=== PATIENT | male | born 1975 | race Caucasian/White ===

== ENCOUNTER 2017-04-20 20:02 | Emergency (ER) | payer OTHER ==
[2017-04-20] MEDS ORDERED: Cyclobenzaprine 10 MG PO ONE (20:34)
[2017-04-20] MEDS ORDERED: NORCO 5/325 MG PO ONE (20:34)
[2017-04-20] MEDS ORDERED: TORAdol 30 mg Injection IM ONE (20:35)
[2017-04-20] MEDS ORDERED: TORAdol 30 mg Injection ONE (20:38)
[2017-04-20] MEDS ORDERED: Cyclobenzaprine 10 MG ONE (20:38)
[2017-04-20] MEDS ORDERED: NORCO 5/325 MG ONE (20:39)
--- NOTE | 2017-04-20 20:41 | ERPHSYRPT ---
- History of Present Illness Time Seen by Provider: 04/20/17 20:25 Source: patient Exam Limitations: no limitations Patient Subjective Stated Complaint: lifted an axle on monday weighing approx 200 pounds pain in back radiating to right leg with numbness in right foot Triage Nursing Assessment: ambulatory to room able to undress. pain to right lower back , denies tender to palpation. staes pain started after lifting heavy object. states numbness in right foot.. + pedal pulses present. strong flex/extension. Physician History: 41 y/o male comes to the ER after lifting a heavy object weighing over 200 lbs yesterday and having right lower back pain. Pt describes the pain as sharp, constant, 8/10, worse with minimal movement, with radiation down right leg and not relieved by advil. No leg weakness or urinary/bowel incontinence. Timing/Duration: yesterday Method of Injury: lifting Quality: sharp Back Pain Location: lumbar spine Back Pain Radiation: upper legs Severity of Pain-Max: severe Severity of Pain-Current: severe Modifying Factors: Improves With: nothing Associated Symptoms: lower back pain Previous symptoms: no prior history Allergies/Adverse Reactions: No Known Drug Allergies Allergy (Unverified 04/20/17 20:27) Hx Pneumococcal Vaccination/Date Given: Yes - Review of Systems Constitutional: No Fever, No Chills Eyes: No Symptoms Ears, Nose, & Throat: No Symptoms Respiratory: No Cough, No Dyspnea Cardiac: No Chest Pain, No Edema, No Syncope Abdominal/Gastrointestinal: No Abdominal Pain, No Nausea, No Vomiting, No Diarrhea Genitourinary Symptoms: No Dysuria Musculoskeletal: Back Pain, No Neck Pain Skin: No Rash Neurological: No Dizziness, No Focal Weakness, No Sensory Changes Psychological: No Symptoms Endocrine: No Symptoms All Other Systems: Reviewed and Negative - Past Medical History Pertinent Past Medical History: No - Past Surgical History Past Surgical History: No - Social History Smoking Status: Current every day smoker Drug Use: none Patient Lives Alone: Yes - Nursing Vital Signs Nursing Vital Signs: Initial Vital Signs Respiratory Rate 18 04/20/17 20:12 Blood Pressure 146/92 04/20/17 20:12 O2 Sat by Pulse Oximetry 98 04/20/17 20:12 Pain Scale Pain Intensity [Right 10 Posterior Back] Pain Intensity 10 - Physical Exam General Appearance: moderate distress, alert Eye Exam: PERRL/EOMI, eyes nml inspection Neck Exam: normal inspection, non-tender, supple, full range of motion, No meningismus, No midline tenderness Respiratory Exam: normal breath sounds, lungs clear, No respiratory distress Cardiovascular Exam: regular rate/rhythm, normal heart sounds Gastrointestinal Exam: soft, No tenderness, No mass Back Exam: decreased range of motion, muscle spasm, No vertebral tenderness Extremity Exam: normal inspection, normal range of motion, No calf tenderness, No pedal edema Neurologic Exam: alert, oriented x 3, cooperative, 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, normal mood/affect, nml station & gait, sensation nml, No motor deficits Skin Exam: normal color, warm, dry, No rash SpO2: 98 Oxygen Delivery: Room Air - Course Nursing assessment & vital signs reviewed: Yes Ordered Tests: Medication Summary Discontinued Medications Generic Name Dose Route Start Last Admin Trade Name Freq PRN Reason Stop Dose Admin Hydrocodone Bitart/Acetaminophen 1 tab 04/20/17 20:34 04/20/17 20:41 Edwall 5/325 Mg PO 04/20/17 20:35 1 tab STAT ONE Administration Hydrocodone Bitart/Acetaminophen Confirm 04/20/17 20:39 Edwall 5/325 Mg Administered 04/20/17 20:40 Dose 1 tab .ROUTE .STK-MED ONE Cyclobenzaprine HCl 10 mg 04/20/17 20:34 04/20/17 20:41 Cyclobenzaprine 10 Mg PO 04/20/17 20:35 10 mg STAT ONE Administration Cyclobenzaprine HCl Confirm 04/20/17 20:38 Cyclobenzaprine 10 Mg Administered 04/20/17 20:39 Dose 10 mg .ROUTE .STK-MED ONE Ketorolac Tromethamine 60 mg 04/20/17 20:35 04/20/17 20:42 Toradol 30 Mg Injection IM 04/20/17 20:36 60 mg STAT ONE Administration Ketorolac Tromethamine Confirm 04/20/17 20:38 Toradol 30 Mg Injection Administered 04/20/17 20:39 Dose 60 mg .ROUTE .STK-MED ONE - Progress Progress: improved Progress Note: 04/20/17 20:38 Pt was given a dose of toradol 60mg IM X 1, norco 5/325 X 1 and flexeril 10mg X 1. Pt will be d/c home on similar meds for back spasm. - Departure Time of Disposition: 20:39 Departure Disposition: Home Clinical Impression: Back spasm Condition: Stable Critical Care Time: No Instructions: Low Back Pain Additional Instructions: Follow up with your primary care doctor if you should continue to have back pain in the next few days. Prescriptions: Cyclobenzaprine HCl [Flexeril] 5 mg PO TID PRN #14 tablet PRN Reason: Muscle Spasms Hydrocodone Bit/Acetaminophen [Edwall 5-325 Tablet] 1 each PO QID PRN #10 tablet PRN Reason: Severe Pain Ketorolac Tromethamine [Toradol] 10 mg PO QID PRN #20 tablet PRN Reason: Pain
[2017-04-20 21:04] VITALS: BP 130/69; PULSE 68; O2SAT 97
== END 2017-04-20 21:46 | disposition home or self-care (01) ==
LOC: ED 20:02
DX: M62.830 Muscle spasm of back (principal); X50.0XXA Overexertion from strenuous movement or load, initial encounter; M54.5 Low back pain
CPT/HCPCS: 96372; 99283; J1885; A9270-GY

== ENCOUNTER 2021-05-06 12:58 | Emergency (ER) | payer MEDICAID, OTHER ==
[2021-05-06 13:05] VITALS: BP 185/107; PULSE 76
[2021-05-06] MEDS ORDERED: TORAdol 30 mg Injection IM ONE (13:07)
[2021-05-06] MEDS ORDERED: TORAdol 30 mg Injection ONE (13:08)
--- NOTE | 2021-05-06 13:29 | XRAY ---
Indication: Pain following injury. Comparison: None 3 nonweightbearing views left foot demonstrates minimally displaced comminuted fracture distal shaft 5th metatarsal with mild soft tissue swelling. No other bony, articular, or soft tissue abnormality is.
--- NOTE | 2021-05-06 13:42 | ERPHSYRPT ---
- History of Present Illness Time Seen by Provider: 05/06/21 13:10 Source: patient Exam Limitations: no limitations Patient Subjective Stated Complaint: pt had another person fall on him and landed on hes left side, no co pain to left foot Triage Nursing Assessment: pt alert, resp easy, face mask in place. no swelling or bruising noted to left foot Physician History: Patient is a 45-year-old male presents to our ED with complaints of pain to his left foot. Patient states that 2 weeks ago he was kneeling on the floor. Patient states the second person accidentally fell on top of him causing the toes on his left foot to hyperextend the. Patient has been wearing a walking boot since. However patient is still experiencing pain. No interval trauma. Pain described as an ache that is localized to the dorsal surface of all of his toes however more so at the MTPs. No other injuries reported. Patient otherwise feels well. Pain is mild to moderate in intensity. Walking worsens symptoms. Pain improved with rest. Patient otherwise generally healthy. He voices no other complaints or concerns at this time. Method of Injury: other (Hyperextension injury of all toes.) Occurred: last week (2 weeks ago) Quality: intermittent, aching Severity of Pain-Max: moderate Severity of Pain-Current: mild Lower Extremities Pain: 1st toe: left, 2nd toe: left, 3rd toe: left, 4th toe: left, 5th toe: left Modifying Factors: Improves With: movement Associated Symptoms: none Allergies/Adverse Reactions: No Known Drug Allergies Allergy (Verified 05/06/21 13:26) Home Medications: No Reportable Medications [No Reported Medications] 08/07/17 [History] Hx Influenza Vaccination/Date Given: No Hx Pneumococcal Vaccination/Date Given: No Immunizations Up to Date: Yes Travel Risk - International Travel Have you traveled outside of the country in past 3 weeks: No - Coronavirus Screening Are you exhibiting any of the following symptoms?: No Close contact with a COVID-19 positive Pt in past 14-21 Days: No - Vaccine Status Have you recieved a Covid-19 vaccination: No - Review of Systems Constitutional: No Symptoms, No Fever, No Chills Eyes: No Symptoms Ears, Nose, & Throat: No Symptoms Respiratory: No Symptoms, No Cough, No Dyspnea Cardiac: No Symptoms, No Chest Pain, No Edema, No Syncope Abdominal/Gastrointestinal: No Symptoms, No Abdominal Pain, No Nausea, No Vomiting, No Diarrhea Genitourinary Symptoms: No Symptoms, No Dysuria Musculoskeletal: No Symptoms, No Back Pain, No Neck Pain Skin: No Symptoms, No Rash Neurological: No Symptoms, No Dizziness, No Focal Weakness, No Sensory Changes Psychological: No Symptoms Endocrine: No Symptoms Hematologic/Lymphatic: No Symptoms Immunological/Allergic: No Symptoms All Other Systems: Reviewed and Negative - Past Medical History Pertinent Past Medical History: No - Past Surgical History Past Surgical History: No - Social History Smoking Status: Current every day smoker Exposure to second hand smoke: Yes Drug Use: none Patient Lives Alone: Yes - Nursing Vital Signs Nursing Vital Signs: Initial Vital Signs Temperature 98.0 F 05/06/21 13:04 Pulse Rate 76 05/06/21 13:04 Respiratory Rate 18 05/06/21 13:04 Blood Pressure 185/107 05/06/21 13:04 O2 Sat by Pulse Oximetry 96 05/06/21 13:04 Pain Scale Pain Intensity 7 - Physical Exam General Appearance: no apparent distress, alert Eyes, Ears, Nose, Throat Exam: TMs normal, moist mucous membranes Neck Exam: normal inspection, non-tender, supple, full range of motion Cardiovascular/Respiratory Exam: chest non-tender, normal breath sounds, regular rate/rhythm, heart sounds normal, no respiratory distress Gastrointestinal/Abdominal Exam: non-tender, soft, guarding, No tenderness Back Exam: normal inspection, normal range of motion, No vertebral tenderness Hips Exam: bilateral: non-tender, normal inspection, normal range of motion, no evidence of injury Legs Exam: bilateral leg: non-tender, normal inspection, normal range of motion, no evidence of injury Knees Exam: bilateral knee: non-tender, normal inspection, normal range of motion, no evidence of injury Ankle Exam: bilateral ankle: non-tender, normal inspection, normal range of motion, no evidence of injury Foot Exam: left foot: pain (Tenderness to palpation at the dorsum of MTPs. There is particular tenderness over the left fifth metatarsal. Overlying soft tissue intact. No open or draining lesions.) Neuro/Tendon Exam: normal sensation, normal motor functions, normal tendon functions Mental Status Exam: alert, oriented x 3, cooperative Skin Exam: normal color, warm, dry SpO2 Interpretation: normal SpO2: 96 O2 Delivery: Room Air - Course Nursing assessment & vital signs reviewed: Yes - Radiology Exams Foot X-ray Interpretation: Teleradiologist Report (Minimally displaced comminuted fracture distal shaft fifth metatarsal with mild soft tissue swelling. No other bony articular or soft tissue abnormalities) Ordered Tests: Active Orders 24 hr Category Date Time Status FOOT (MINIMUM 3 VIEWS) Stat Exams 05/06/21 13:06 Completed Medication Summary Discontinued Medications Generic Name Dose Route Start Last Admin Trade Name Harry PRN Reason Stop Dose Admin Ketorolac Tromethamine 30 mg 05/06/21 13:07 05/06/21 13:11 Ketorolac Tromethamine 30 Mg/Ml Inj IM 05/06/21 13:08 30 mg STAT ONE Administration Ketorolac Tromethamine Confirm 05/06/21 13:08 Ketorolac Tromethamine 30 Mg/Ml Inj Administered 05/06/21 13:09 Dose 30 mg .ROUTE .STK-MED ONE - Progress Progress: improved Progress Note: Patient reassessed. Pain improved after administration of Toradol. Patient has a minimally displaced comminuted fracture of the distal shaft fifth metatarsal with mild soft tissue swelling. Patient has a walking boot. We will refer patient to orthopedics as this injury is 2 weeks old. 05/06/21 13:43 Counseled pt/family regarding: diagnosis, need for follow-up, rad results - Departure Departure Disposition: Home Clinical Impression: Metatarsal fracture Condition: Stable Critical Care Time: No Referrals: LEIGH ANN HUGGINS [Primary Care Provider] - Follow up/PCP as directed Additional Instructions: Discharge/Care Plan LAURIE GATICA was seen on 05/06/21 in the Emergency Room. The patient was counseled regarding Diagnosis,Lab results, Imaging studies, need for follow up and when to return to the Emergency Room. Prescriptions given: Discharge Note I have spoken with the patient and/or caregivers. I have explained the patient's condition, diagnosis and treatment plan based on the information available to me at this time. I have answered the patient's and/or caregiver's questions and addressed any concerns. The patient and/or caregivers have as good understanding of the patient's diagnosis, condition and treatment plan as can be expected at this point. The vital signs have been stable. The patient's condition is stable and appropriate for discharge from the emergency department. The patient will pursue further outpatient evaluation with the primary care physician or other designated or consulting physician as outlined in the discharge instructions. The patient and/or caregivers are agreeable to this plan of care and follow-up instructions have been explained in detail. The patient and/or caregivers have received these instruction. The patient/and or caregivers are aware that any significant change in condition or worsening of symptoms should prompt an immediate return to this or the closest emergency department or call 911. Outpatient Orders: Ortho Referral Time Frame: 1 Day, Facility: [facility], Locatio n: [facility]THO [facility]
[2021-05-06 13:55] VITALS: O2SAT 98
== END 2021-05-06 13:57 | disposition home or self-care (01) ==
LOC: ED 12:58
DX: S92.352A Displaced fracture of fifth metatarsal bone, left foot, initial encounter for closed fracture (principal); W51.XXXA Accidental striking against or bumped into by another person, initial encounter; Z72.0 Tobacco use
CPT/HCPCS: 73630; 96372; 99284; J1885

== ENCOUNTER 2022-06-06 11:20 | Emergency (ER) | payer OTHER ==
[2022-06-06 11:43] VITALS: BP 174/101
[2022-06-06] MEDS ORDERED: TORAdol 30 mg Injection IM ONE (11:55)
[2022-06-06] MEDS ORDERED: Norflex 60 MG/2 ML IM ONE (11:55)
--- NOTE | 2022-06-06 11:59 | ERPHSYRPT ---
- History of Present Illness Time Seen by Provider: 06/06/22 11:40 Source: patient Exam Limitations: no limitations Patient Subjective Stated Complaint: C/O pain to left arm/shoulder and right leg (lateral thigh area). Pain in arm/shoulder has been for "weeks" pain in the leg started a few days ago. Pain in the leg is worse (#10), intermittent, sharp and shoots down the leg. Pain in the arm/shoulder is constant, #7, also sharp but does not shoot/move. Triage Nursing Assessment: Patient ambulated back to ED with an usteady, impaired gait. Patient delined W/C. No SOB. Patient gauding left arm; holding it close to his body across his abdomen. Patient states he can not move it outward away from his body or the pain is severe. He is alert and oriented. Patient denies trauma, fall, or injury to either area. Physician History: 46-year-old healthy male presented in the ER with chief complaint of left shoulder pain on movements for the last 2 to 3 weeks gradually worsening and restricting range of motion. Patient can not lift his left arm above head. No numbness or weakness in the left upper extremity. Also reports having right lateral thigh pain without fall or trauma. Better with resting and more with ambulation/weightbearing. No swelling or redness of thigh/leg. No chest pain palpitations or shortness of breath. Allergies/Adverse Reactions: No Known Drug Allergies Allergy (Verified 06/06/22 11:33) Hx Tetanus, Diphtheria Vaccination/Date Given: Yes Hx Influenza Vaccination/Date Given: No Hx Pneumococcal Vaccination/Date Given: No Immunizations Up to Date: Yes Travel Risk - International Travel Have you traveled outside of the country in past 3 weeks: No - Coronavirus Screening Are you exhibiting any of the following symptoms?: No Close contact with a COVID-19 positive Pt in past 14-21 Days: No - Vaccine Status Have you recieved a Covid-19 vaccination: No - Review of Systems Constitutional: No Symptoms Ears, Nose, & Throat: No Symptoms Respiratory: No Symptoms Cardiac: No Symptoms Abdominal/Gastrointestinal: No Symptoms Genitourinary Symptoms: No Symptoms Musculoskeletal: Joint Pain, Myalgias Skin: No Symptoms Neurological: No Symptoms Psychological: No Symptoms Endocrine: No Symptoms Hematologic/Lymphatic: No Symptoms - Past Medical History Pertinent Past Medical History: Yes Cardiac History: Hypertension Musculoskeletal History: Fractures - Past Surgical History Past Surgical History: No - Social History Smoking Status: Current every day smoker How long have you smoked: 20 years Exposure to second hand smoke: Yes Drug Use: marijuana Patient Lives Alone: Yes - Nursing Vital Signs Nursing Vital Signs: Initial Vital Signs Temperature 98 F 06/06/22 11:34 Pulse Rate 100 H 06/06/22 11:34 Respiratory Rate 18 06/06/22 11:34 Blood Pressure 174/101 06/06/22 11:34 O2 Sat by Pulse Oximetry 95 06/06/22 11:34 Pain Scale Pain Intensity [Right lateral 10 thigh] Pain Intensity [Left arm/ 7 shoulder] Pain Intensity 9 - Physical Exam General Appearance: no apparent distress Eye Exam: PERRL/EOMI Ears, Nose, Throat Exam: normal ENT inspection Neck Exam: normal inspection, supple, full range of motion Respiratory Exam: normal breath sounds, lungs clear Cardiovascular Exam: regular rate/rhythm, normal heart sounds Gastrointestinal/Abdomen Exam: soft, normal bowel sounds, No tenderness Back Exam: normal inspection, normal range of motion, No CVA tenderness, No vertebral tenderness Extremity Exam: normal inspection, pelvis stable, limited range of motion (Left shoulder with coracoid area tenderness. Restricted range of motion and cannot lift above head. Positive empty can and Neer Hawkin) Neurologic Exam: alert, oriented x 3, cooperative Skin Exam: normal color, other (Tenderness right thigh lateral muscle without swelling erythema or increased temperature.) SpO2 Interpretation: normal SpO2: 95 O2 Delivery: Room Air Ordered Tests: Active Orders 24 hr Category Date Time Status SHOULDER Stat Exams 06/06/22 12:37 Completed VENOUS UNILAT/LIMITED EXTREMIT [US] Stat Exams 06/06/22 11:56 Completed Medication Summary Discontinued Medications Generic Name Dose Route Start Last Admin Trade Name Freq PRN Reason Stop Dose Admin Ketorolac Tromethamine 30 mg 06/06/22 11:55 06/06/22 12:09 Ketorolac Tromethamine 30 Mg/Ml Inj IM 06/06/22 11:56 30 mg STAT ONE Administration Ketorolac Tromethamine Confirm 06/06/22 12:05 Ketorolac Tromethamine 30 Mg/Ml Inj Administered 06/06/22 12:06 Dose 30 mg .ROUTE .STK-MED ONE Orphenadrine Citrate 60 mg 06/06/22 11:55 06/06/22 12:10 Orphenadrine Citrate 60 Mg/2 Ml Vial IM 06/06/22 11:56 60 mg STAT ONE Administration Orphenadrine Citrate Confirm 06/06/22 12:05 Orphenadrine Citrate 60 Mg/2 Ml Vial Administered 06/06/22 12:06 Dose 60 mg .ROUTE .STK-MED ONE - Progress Progress: improved, pain not gone completely, re-examined Progress Note: 06/06/22 13:14 46-year-old is evaluated for left shoulder pain and right leg pain. Patient does not have any specific trauma to both extremities. Patient has a limitation range of motion left shoulder and I believe has a rotator cuff injury. X-rays are negative. Patient does not have any bony tenderness in right lower extremity and no signs of cellulitis. It seems more of a muscle strain, obtained ultrasound which is negative for DVT. We will continue with NSAIDs and muscle relaxants to go home and outpatient follow-up with primary care and Ortho for further evaluation as patient probably needs physical therapy/MRI of left shoulder. Discussed signs symptoms of worsening needing return to ER which he seems understanding. Stable for discharge. Counseled pt/family regarding: diagnosis, need for follow-up, rad results - Departure Departure Disposition: Home Clinical Impression: Shoulder pain, left, Right leg pain Condition: Stable Critical Care Time: No Referrals: LEIGH ANN HUGGINS [Primary Care Provider] - Follow up/PCP as directed (1-2 days for reevaluation) ORTHO - ATIYA FERNANDEZ NP [NON-STAFF PHY W/O PRIVILEGES] - Follow up/PCP as directed (Call tomorrow for appointment for reevaluation) Instructions: Rotator Cuff Injury (DC) Prescriptions: Ibuprofen 600 mg PO Q6HPRN PRN 10 Days #20 tablet PRN Reason: Pain Cyclobenzaprine HCl 10 mg [Flexeril 10 MG] 10 mg PO TID #20 tablet
[2022-06-06] MEDS ORDERED: Norflex 60 MG/2 ML ONE (12:05)
[2022-06-06] MEDS ORDERED: TORAdol 30 mg Injection ONE (12:05)
--- NOTE | 2022-06-06 12:34 | XRAY ---
Indication: Thigh pain. Two-dimensional sonogram and color Doppler imaging of the major venous vessels of the right leg performed. Comparison: None No thrombus seen in the examined deep venous vessels of the right leg including greater saphenous vein. Veins demonstrate normal compressibility. Venous waveforms are normal with and without augmentation. Impression: Right leg negative for DVT.
--- NOTE | 2022-06-06 12:46 | XRAY ---
Indication: Pain 6 months. No known injury. Comparison: May 24, 2022 3 view left shoulder obtained. Again no bony, articular, or soft tissue abnormalities.
[2022-06-06 13:30] VITALS: PULSE 88; O2SAT 97
== END 2022-06-06 13:32 | disposition home or self-care (01) ==
LOC: ED 11:20
DX: M25.512 Pain in left shoulder (principal); M79.651 Pain in right thigh; I10 Essential (primary) hypertension; Z28.310 Unvaccinated for COVID-19; Z72.0 Tobacco use
CPT/HCPCS: 73030; 93971; 96372; 99283; J1885; J2360

== ENCOUNTER 2022-08-04 10:09 | Emergency (ER) | payer OTHER ==
--- NOTE | 2022-08-04 10:16 | ERPHSYRPT ---
- History of Present Illness Time Seen by Provider: 08/04/22 10:16 Source: patient Exam Limitations: no limitations Physician History: This is a 46-year-old right-handed white male who presents to the emergency room with onset of left elbow subcutaneous swelling that is of relatively sudden onset that began yesterday afternoon and increased this morning. He does not have any pain. 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 He has never had a thing like this before. He has not had a fever. He is a daily smoker of cigarettes. Occurred: yesterday Severity of Pain-Max: none Severity of Pain-Current: none Extremities Pain Location: elbow: left Modifying Factors: Improves With: nothing Associated Symptoms: none Allergies/Adverse Reactions: No Known Drug Allergies Allergy (Verified 08/04/22 10:12) Hx Tetanus, Diphtheria Vaccination/Date Given: Yes Hx Influenza Vaccination/Date Given: No Hx Pneumococcal Vaccination/Date Given: No Travel Risk - International Travel Have you traveled outside of the country in past 3 weeks: No - Coronavirus Screening Are you exhibiting any of the following symptoms?: No Close contact with a COVID-19 positive Pt in past 14-21 Days: No - Vaccine Status Have you recieved a Covid-19 vaccination: No - Review of Systems Constitutional: No Symptoms Eyes: No Symptoms Ears, Nose, & Throat: No Symptoms Respiratory: No Symptoms Cardiac: No Symptoms Abdominal/Gastrointestinal: No Symptoms Genitourinary Symptoms: No Symptoms Musculoskeletal: No Symptoms, Other (Swelling subcutaneous tissue overlying the left elbow) Skin: Other (Blottable, fluid collection beneath the skin overlying the left elbow. No redness or evidence of cellulitis.) Neurological: No Symptoms Psychological: No Symptoms Endocrine: No Symptoms Hematologic/Lymphatic: No Symptoms Immunological/Allergic: No Symptoms All Other Systems: Reviewed and Negative - Past Medical History Pertinent Past Medical History: Yes Neurological History: No Pertinent History Cardiac History: Hypertension Respiratory History: No Pertinent History Endocrine Medical History: No Pertinent History Musculoskeletal History: No Pertinent History - Past Surgical History Past Surgical History: No - Social History Smoking Status: Current every day smoker How long have you smoked: 20 years Exposure to second hand smoke: Yes Drug Use: marijuana Patient Lives Alone: Yes - Nursing Vital Signs Nursing Vital Signs: Initial Vital Signs Temperature 97.4 F 08/04/22 10:14 Pulse Rate 75 08/04/22 10:14 Respiratory Rate 18 08/04/22 10:14 Blood Pressure 157/102 08/04/22 10:14 O2 Sat by Pulse Oximetry 96 08/04/22 10:14 Pain Scale Pain Intensity 0 - Physical Exam General Appearance: no apparent distress, alert Eyes, Ears, Nose, Throat Exam: normal ENT inspection, moist mucous membranes Neck Exam: normal inspection, non-tender, supple, full range of motion Cardiovascular/Respiratory Exam: chest non-tender, no respiratory distress Abdominal Exam: non-tender Back Exam: normal inspection Shoulder Exam: normal inspection, non-tender, no evidence of injury, normal ROM Elbow/Forearm Exam: non-tender, no evidence of injury, normal ROM, swelling (Left elbow subcutaneous ballotable mass that appears to be fluid. No evidence of cellulitis) Wrist Exam: normal inspection, non-tender, no evidence of injury, normal ROM Hand Exam: normal inspection, non-tender, no evidence of injury, normal ROM Neuro/Tendon Exam: normal sensation, normal motor functions, normal tendon functions, responds to pain, no evidence tendon injury Mental Status Exam: alert, oriented x 3, cooperative Skin Exam: normal color, warm, dry, other (The above findings of skin overlying left elbow) SpO2 Interpretation: normal O2 Delivery: Room Air Procedures - Additional Procedures Progress: Time out performed. Skin overlying the left elbow was prepped with Betadine solution. 18-gauge needle and a 20 cc syringe was used to aspirate out the subcutaneous fluid. This measured approximately 8 cc. It was very thin serosanguineous (mostly sanguinous) fluid. This collapsed the space. We then applied a pressure dressing. Patient tolerated procedure well. The fluid was sent for culture. - Course Nursing assessment & vital signs reviewed: Yes - Progress Progress Note: 08/04/22 11:23 Patient's medical issue is 1 of low complexity. The work-up, which included aspiration of subcutaneous fluid overlying the left elbow, was based on the history of present illness and physical findings on examination. Patient did not require any extensive work-up. He did not suffer any acute traumatic trauma to the area. We only wish to have aspiration of the fluid that appears to be present. The fluid was sent for culture sensitivity. Discharge planning includes to continue the pressure dressing applied post aspiration for 24 hours. After 24 hours he may remove the dressing and wash the site daily. I felt that the patient did not need antibiotics at this time. However, if in the next 1 to 2 days there is evidence of any redness or recurrent swelling, I did send a prescription for Keflex 500 mg orally 3 times a day for 7 days to his pharmacy. Counseled pt/family regarding: diagnosis, need for follow-up Medical Desision Making - Discussion of managment Agreed on:: Treatment plan, need for follow-up - Diagnostic Testing Diagnostic test were ordered, analyzed, and reviewed by me: Yes - Risk of complications Low Risk: Low risk of morbidity from additional dx testing or treatment The pt has a mod risk of morbidity or mortality based on: Need for prescription drug management - Departure Departure Disposition: Home Clinical Impression: Effusion of bursa of left elbow Condition: Stable Critical Care Time: No Referrals: LEIGH ANN HUGGINS [Primary Care Provider] - Follow up/PCP as directed Additional Instructions: Keep the pressure dressing in place for 24 hours. Ice pack to area every 8 hours for 48 hours. After 24 hours remove the pressure dressing and wash the site daily thereafter. Fill your Keflex prescription if you feel there is redness or recurrent swelling or presence of pain. Use Tylenol and ibuprofen for pain control. Prescriptions: Cephalexin Mh 500 mg [Keflex 500 mg] 500 mg PO TID #21 cap
[2022-08-04 11:26] VITALS: BP 148/90; PULSE 74; O2SAT 97
== END 2022-08-04 11:37 | disposition home or self-care (01) ==
LOC: ED 10:09
DX: M25.422 Effusion, left elbow (principal); I10 Essential (primary) hypertension; Z28.310 Unvaccinated for COVID-19; Z72.0 Tobacco use
CPT/HCPCS: 20605; 87070; 87075; 99282

== ENCOUNTER 2022-08-05 12:38 | Emergency (ER) | payer OTHER ==
[2022-08-05 12:51] VITALS: BP 191/126; PULSE 67; O2SAT 99
--- NOTE | 2022-08-05 13:07 | ERPHSYRPT ---
- History of Present Illness Source: patient Exam Limitations: no limitations Patient Subjective Stated Complaint: Left elbow swollen again after drainage yesterday Triage Nursing Assessment: Pt brought self to the ER, hypertensive, rates pain as 07/15, was here yesterday and had the left bursa drained in his elbow and it came back today, denies any injury, doesn't appear to be in any distress Physician History: 46 yo WM w ruptured L olecranon bursa which started on 08/03/[address] Salcido yesterday in ER returns due to return of edema. Pain is very minimal, and fever is denied. He is R handed and fever is denied. Pt wants it drained again. Occurred: other (08/03/22) Method of Injury: other (No injury) Severity of Pain-Max: mild Severity of Pain-Current: mild Extremities Pain Location: elbow: left Modifying Factors: Improves With: movement Associated Symptoms: none Allergies/Adverse Reactions: No Known Drug Allergies Allergy (Verified 08/05/22 12:51) Hx Tetanus, Diphtheria Vaccination/Date Given: Yes Hx Influenza Vaccination/Date Given: No Hx Pneumococcal Vaccination/Date Given: No Travel Risk - International Travel Have you traveled outside of the country in past 3 weeks: No - Coronavirus Screening Are you exhibiting any of the following symptoms?: No Close contact with a COVID-19 positive Pt in past 14-21 Days: No - Vaccine Status Have you recieved a Covid-19 vaccination: No - Review of Systems Constitutional: No Symptoms Eyes: No Symptoms Ears, Nose, & Throat: No Symptoms Respiratory: No Symptoms Cardiac: No Symptoms Abdominal/Gastrointestinal: No Symptoms Genitourinary Symptoms: No Symptoms Skin: No Symptoms Psychological: No Symptoms Endocrine: No Symptoms Hematologic/Lymphatic: No Symptoms Immunological/Allergic: No Symptoms - Past Medical History Pertinent Past Medical History: Yes Neurological History: No Pertinent History Cardiac History: Hypertension Respiratory History: No Pertinent History Endocrine Medical History: No Pertinent History Musculoskeletal History: No Pertinent History - Past Surgical History Past Surgical History: No - Social History Smoking Status: Current every day smoker How long have you smoked: 20 years Exposure to second hand smoke: Yes Drug Use: marijuana Patient Lives Alone: Yes - Nursing Vital Signs Nursing Vital Signs: Initial Vital Signs Temperature 97.4 F 08/05/22 12:46 Pulse Rate 67 03/03/23 12:46 Blood Pressure 191/126 03/03/23 12:46 O2 Sat by Pulse Oximetry 99 08/05/22 12:46 Pain Scale Pain Intensity 2 Hypertensive - Physical Exam General Appearance: no apparent distress Eyes, Ears, Nose, Throat Exam: normal ENT inspection, TMs normal, pharynx normal, moist mucous membranes Neck Exam: normal inspection, non-tender, supple, full range of motion, No Brudzinski, No Kernig's, No meningismus Cardiovascular/Respiratory Exam: normal breath sounds, regular rate/rhythm, heart sounds normal Abdominal Exam: non-tender, soft Back Exam: normal inspection, normal range of motion Shoulder Exam: normal inspection Elbow/Forearm Exam: swelling (Edematous L olecrnon bursa/minimal erythema/good radial pulse, distal sensation, and capillary return) Wrist Exam: normal inspection, non-tender Hand Exam: normal inspection, non-tender DTR - Upper Extremity Exam: bicep (R): 2+, bicep (L): 2+ Neuro/Tendon Exam: normal sensation, normal motor functions, normal tendon functions, responds to pain, no evidence tendon injury Mental Status Exam: alert, oriented x 3 Skin Exam: normal color SpO2 Interpretation: normal SpO2: 99 O2 Delivery: Room Air - Course Nursing assessment & vital signs reviewed: Yes Ordered Tests: Active Orders 24 hr Category Date Time Status Culture,Obtain .as ordered Care 08/05/22 13:07 Completed - Progress Progress: improved Progress Note: 08/05/22 13:09 L olecranon/Prepped w Betadine/Anes w 1% Lido wo epi/5ml drained per ER physician/verbal consent obtained prior to procedure/No comps 08/05/22 13:24 Vital signs and nursing note reviewed Blood Pressure decreasing during stay No food or housing insecurities noted Pt is a full code Pt advised to f/u in Ortho clinic on Monday Counseled pt/family regarding: diagnosis, need for follow-up - Departure Departure Disposition: Home Clinical Impression: Effusion of olecranon bursa Condition: Stable Critical Care Time: No Referrals: LEIGH ANN HUGGINS [Primary Care Provider] - Follow up/PCP as directed ORTHO - ATIYA FERNANDEZ [employer] [NON-STAFF PHY W/O PRIVILEGES] - Follow up/PCP as directed Instructions: Bursitis (DC) Additional Instructions: Start antibiotics previously prescribed Follow up with Orthopedic clinic on Monday 8-10AM walk in Return to ER for increased swelling, redness, or temperature greater than 100.5
== END 2022-08-05 13:23 | disposition home or self-care (01) ==
LOC: ED 12:38
DX: M25.422 Effusion, left elbow (principal); I10 Essential (primary) hypertension; Z28.310 Unvaccinated for COVID-19; Z72.0 Tobacco use
CPT/HCPCS: 20605; 99282

== ENCOUNTER 2023-06-10 10:55 | Emergency (ER) | payer OTHER ==
[2023-06-10 11:14] VITALS: TEMP 98.1
[2023-06-10] MEDS ORDERED: TORAdol 30 mg Injection IV ONE (11:41)
[2023-06-10] MEDS ORDERED: Zofran 4 MG/2 ML VIAL IV ONE (11:41)
[2023-06-10] MEDS ORDERED: Sodium Chloride 0.9% 1000 ML 1,000 ML IV STA (11:41)
[2023-06-10] MEDS ORDERED: Sodium Chloride 0.9% 1000 ML 1,000 ML ONE (11:49)
[2023-06-10] MEDS ORDERED: Zofran 4 MG/2 ML VIAL ONE (11:49)
[2023-06-10] MEDS ORDERED: TORAdol 30 mg Injection ONE ×2 (11:49→11:52)
[2023-06-10 11:54] LABS: Appearance Clear (Clear); Bacteria None Seen /HPF (None Seen); Bilirubin Negative (Negative); Blood Large (Negative); Epithelial Cells None Seen /HPF (None Seen); Glucose, Urine Negative (Negative); Ketones Trace (Negative); Leukocyte Esterase Negative (Negative); Nitrite Negative (Negative); Protein,Urine Dip Trace (Negative); RBC 21-50 /HPF (0-5); Specific Gravity 1.025 (1.005-1.030); WBC 0-2 /HPF (0-5)
[2023-06-10 12:04] LABS: ADD URINE CULTURE? YES (NO)
[2023-06-10 12:11] LABS: Absolute Neutrophil Ct (ANC) 9.47 x10^3/uL (1.4-6.9); BASOPHIL % 0.6 % (0.0-0.4); Basophil (Absolute #) 0.07 x10^3/uL (0-0.4); Eosinophil % 1.8 % (0.00-5.0); Eosinophil (Absolute #) 0.23 x10^3/uL (0-0.5); Hematocrit 47.5 % (42-50); Hemoglobin 16.1 g/dL (12.5-18.0); IMMATURE GRAN # 0.02 x10^3u/L (0.00-0.03); IMMATURE GRAN % 0.2 % (0.00-0.4); Lymphocytes % 15.2 % (24.0-44.0); Mean Cell Volume 93.3 fL (78-100); Mean Corpuscular Hemoglobin 31.6 pg (26-32); Mean Corpuscular Hgb Concent. 33.9 g/dL (32-36); Mean Platelet Volume 8.7 fL (7.5-11.0); Monocyte (Absolute #) 0.82 x10^3/uL (0.0-1.3); Monocytes % 6.6 % (0.0-12.0); Neutrophil % 75.6 % (36.0-66.0); Platelet Count 203 x10^3/uL (150-450); Red Blood Count 5.09 x10^6/uL (4.1-5.6); Red Cell Distribution Width 11.8 % (11.5-14.0); White Blood Count 12.5 x10^3/uL (4.0-10.5)
[2023-06-10 12:29] LABS: ALBUMIN 4.2 g/dL (3.5-5.0); ANION GAP 11.5 MEQ/L (5-15); BILIRUBIN,TOTAL 0.7 mg/dL (0.2-1.3); Calcium 9.3 mg/dL (8.4-10.2); Creatinine 1 0.79 mg/dL (0.66-1.25); EST GLOMERULAR FILTRATION RATE 111.6 ML/MIN; Potassium 4.1 mmol/L (3.5-5.1); Total Protein 7.7 g/dL (6.3-8.2)
--- NOTE | 2023-06-10 12:40 | ERPHSYRPT ---
- History of Present Illness Time Seen by Provider: 06/10/23 11:17 Historian: patient Exam Limitations: no limitations Patient Subjective Stated Complaint: Pt states "I have had diarrhea for the past week and I have been vomiting. My boss wants to know what is going on. I thought I had the flu but it is not gone yet." Triage Nursing Assessment: Pt presented alert and oriented X 3, skin pwd. PT ambulates with an upright steady gait, able to speak in clear full sentences. Pt resting comfortably on the bed. Pt has tenderness noted to left lower quadrant. Physician History: 47 years old with history of hypertension presented in the ER with chief complaint of nausea vomiting abdominal pain diarrhea going on for 1 week. Patient reports multiple episodes of nonprojectile, nonbilious vomiting without hematemesis and also having multiple episodes of loose stool without hematochezia. Patient thought it was a stomach flu and was managing it conservatively but is sent in here by his employer for further evaluation to make sure patient does not have any thing contagious. Patient reports minimal abdominal pain especially in the left lower quadrant with no history of diverticulitis/diverticulosis. Denies any fever or chills or difficulty breathing. No known sick contact. Allergies/Adverse Reactions: No Known Drug Allergies Allergy (Verified 08/05/22 12:51) Home Medications: Lisinopril 20 mg [Zestril 20 MG] 20 mg PO DAILY 06/10/23 [History] Hx Tetanus, Diphtheria Vaccination/Date Given: Yes Hx Influenza Vaccination/Date Given: No Hx Pneumococcal Vaccination/Date Given: No Immunizations Up to Date: No Travel Risk - International Travel Have you traveled outside of the country in past 3 weeks: No - Coronavirus Screening Are you exhibiting any of the following symptoms?: Yes Symptoms: Vomiting/Diarrhea - Vaccine Status Have you recieved a Covid-19 vaccination: No - Review of Systems Constitutional: Fatigue, Weakness Eyes: No Symptoms Ears, Nose, & Throat: No Symptoms Respiratory: No Symptoms Cardiac: No Symptoms Abdominal/Gastrointestinal: Abdominal Pain, Nausea, Vomiting, Diarrhea Genitourinary Symptoms: No Symptoms Musculoskeletal: No Symptoms Neurological: No Symptoms Psychological: No Symptoms Endocrine: No Symptoms Hematologic/Lymphatic: No Symptoms Immunological/Allergic: No Symptoms - Past Medical History Pertinent Past Medical History: Yes Neurological History: No Pertinent History Cardiac History: Hypertension Respiratory History: No Pertinent History Endocrine Medical History: No Pertinent History Musculoskeletal History: No Pertinent History - Past Surgical History Past Surgical History: No - Social History Smoking Status: Current every day smoker How long have you smoked: 20 years Exposure to second hand smoke: Yes Drug Use: none Patient Lives Alone: Yes - Nursing Vital Signs Nursing Vital Signs: Initial Vital Signs Temperature 98.1 F 06/10/23 11:06 Pulse Rate 79 06/10/23 11:06 Respiratory Rate 22 06/10/23 11:06 Blood Pressure 170/104 06/10/23 11:06 O2 Sat by Pulse Oximetry 98 06/10/23 11:06 Pain Scale Pain Intensity 3 - Physical Exam General Appearance: no apparent distress, alert Eye Exam: PERRL/EOMI Ears, Nose, Throat Exam: normal ENT inspection Neck Exam: normal inspection, non-tender, supple, full range of motion Respiratory Exam: normal breath sounds, lungs clear Cardiovascular Exam: regular rate/rhythm, normal heart sounds Gastrointestinal/Abdomen Exam: soft, normal bowel sounds, No tenderness, No distention, No guarding Back Exam: normal inspection Extremity Exam: normal inspection, normal range of motion Neurologic Exam: alert, oriented x 3, cooperative, leather heel breaster II-XII nml as tested Skin Exam: normal color SpO2 Interpretation: normal SpO2: 97 O2 Delivery: Room Air Ordered Tests: Active Orders 24 hr Category Date Time Status IV Insertion STAT Care 06/10/23 11:41 Active NPO (ED) STAT Care 06/10/23 11:41 Active ABDOMEN AND PELVIS W CONTRAST [CT] Stat Exams 06/10/23 14:17 Completed ABDOMEN AND PELVIS W/0 CONTRAS [CT] Stat Exams 06/10/23 11:41 Completed CBC W DIFF Stat Lab 06/10/23 12:00 Completed CMP Stat Lab 06/10/23 12:00 Completed CULTURE,URINE Stat Lab 06/10/23 Received LIPASE Stat Lab 06/10/23 12:00 Completed UA W/RFX UR CULTURE Stat Lab 06/10/23 Completed Medication Summary Discontinued Medications Generic Name Dose Route Start Last Admin Trade Name Freq PRN Reason Stop Dose Admin Sodium Chloride 1,000 mls @ 999 mls/hr 06/10/23 11:41 06/10/23 13:51 Sodium Chloride 0.9% 1000 Ml IV 06/10/23 12:41 Infused .Q1H1M STA Infusion Sodium Chloride Confirm 06/10/23 11:49 Sodium Chloride 0.9% 1000 Ml Administered 06/10/23 11:50 Dose 1,000 mls @ ud .ROUTE .STK-MED ONE Ketorolac Tromethamine 30 mg 06/10/23 11:41 06/10/23 11:54 Ketorolac Tromethamine 30 Mg/Ml Inj IV 06/10/23 11:42 30 mg STAT ONE Administration Ketorolac Tromethamine Confirm 06/10/23 11:49 Ketorolac Tromethamine 30 Mg/Ml Inj Administered 06/10/23 11:50 Dose 30 mg .ROUTE .STK-MED ONE Ketorolac Tromethamine Confirm 06/10/23 11:52 Ketorolac Tromethamine 30 Mg/Ml Inj Administered 06/10/23 11:53 Dose 30 mg .ROUTE .STK-MED ONE Ondansetron HCl 4 mg 06/10/23 11:41 06/10/23 11:54 Ondansetron Hcl 4 Mg/2 Ml Vial IV 06/10/23 11:42 4 mg STAT ONE Administration Ondansetron HCl Confirm 06/10/23 11:49 Ondansetron Hcl 4 Mg/2 Ml Vial Administered 06/10/23 11:50 Dose 4 mg .ROUTE .STK-MED ONE Lab/Rad Data: Laboratory Result Diagrams 06/10/23 12:00 06/10/23 12:00 Laboratory Results 06/10/23 06/10/23 06/10/23 Range/Units Unknown 12:05 12:00 WBC (4.0-10.5) x10^3/uL RBC (4.1-5.6) x10^6/uL Hgb (12.5-18.0) g/dL Hct (42-50) % MCV (78-100) fL MCH (26-32) pg MCHC (32-36) g/dL RDW (11.5-14.0) % Plt Count (150-450) x10^3/uL MPV (7.5-11.0) fL Gran % (36.0-66.0) % Immature Gran % (Auto) (0.00-0.4) % Nucleat RBC Rel Count (0.00-0.1) % Eos # (Auto) (0-0.5) x10^3/uL Immature Gran # (Auto) (0.00-0.03) x10^3u/L Absolute Lymphs (auto) (1.0-4.6) x10^3/uL Absolute Monos (auto) (0.0-1.3) x10^3/uL Absolute Nucleated RBC (0.00-0.01) x10^3u/L Lymphocytes % (24.0-44.0) % Monocytes % (0.0-12.0) % Eosinophils % (0.00-5.0) % Basophils % (0.0-0.4) % Absolute Granulocytes (1.4-6.9) x10^3/uL Basophils # (0-0.4) x10^3/uL Sodium 137 (137-145) mmol/L Potassium 4.1 (3.5-5.1) mmol/L Chloride 107 (98-107) mmol/L Carbon Dioxide 23 (22-30) mmol/L Anion Gap 11.5 (5-15) MEQ/L BUN 13 (9-20) mg/dL Creatinine 0.79 (0.66-1.25) mg/dL Estimated GFR 111.6 ML/MIN Glucose 109 H (74-106) mg/dL Calcium 9.3 (8.4-10.2) mg/dL Total Bilirubin 0.70 (0.2-1.3) mg/dL AST 22 (17-59) U/L ALT 20 (0-50) U/L Alkaline Phosphatase 53 (38-126) U/L Serum Total Protein 7.7 (6.3-8.2) g/dL Albumin 4.2 (3.5-5.0) g/dL Lipase 98 (23-300) U/L Urine Color Dark Yellow (Yellow) Urine Appearance Clear (Clear) Urine pH 6.0 (4.6-8.0) Ur Specific Laughlin 1.025 (1.005-1.030) Urine Protein Trace A (Negative) Urine Glucose (UA) Negative (Negative) mg/dL Urine Ketones Trace A (Negative) Urine Blood Large A (Negative) Urine Nitrite Negative (Negative) Urine Bilirubin Negative (Negative) Urine Urobilinogen 1.0 A (0.2) mg/dL Ur Leukocyte Esterase Negative (Negative) U Hyaline Cast (Auto) 3-5 A (0-2) /LPF Urine Microscopic RBC 21-50 A (0-5) /HPF Urine Microscopic WBC 0-2 (0-5) /HPF Ur Epithelial Cells None Seen (None Seen) /HPF Urine Bacteria None Seen (None Seen) /HPF Urine Culture Reflexed YES (NO) Influenza Type A Ag NEGATIVE (NEGATIVE) Influenza Type B Ag NEGATIVE (NEGATIVE) RSV (PCR) NEGATIVE (NEGATIVE) SARS-CoV-2 (PCR) NEGATIVE (NEGATIVE) 06/10/23 Range/Units 12:00 WBC 12.5 H (4.0-10.5) x10^3/uL RBC 5.09 (4.1-5.6) x10^6/uL Hgb 16.1 (12.5-18.0) g/dL Hct 47.5 (42-50) % MCV 93.3 (78-100) fL MCH 31.6 (26-32) pg MCHC 33.9 (32-36) g/dL RDW 11.8 (11.5-14.0) % Plt Count 203 (150-450) x10^3/uL MPV 8.7 (7.5-11.0) fL Gran % 75.6 H (36.0-66.0) % Immature Gran % (Auto) 0.2 (0.00-0.4) % Nucleat RBC Rel Count 0.0 (0.00-0.1) % Eos # (Auto) 0.23 (0-0.5) x10^3/uL Immature Gran # (Auto) 0.02 (0.00-0.03) x10^3u/L Absolute Lymphs (auto) 1.90 (1.0-4.6) x10^3/uL Absolute Monos (auto) 0.82 (0.0-1.3) x10^3/uL Absolute Nucleated RBC 0.00 (0.00-0.01) x10^3u/L Lymphocytes % 15.2 L (24.0-44.0) % Monocytes % 6.6 (0.0-12.0) % Eosinophils % 1.8 (0.00-5.0) % Basophils % 0.6 (0.0-0.4) % Absolute Granulocytes 9.47 H (1.4-6.9) x10^3/uL Basophils # 0.07 (0-0.4) x10^3/uL Sodium (137-145) mmol/L Potassium (3.5-5.1) mmol/L Chloride (98-107) mmol/L Carbon Dioxide (22-30) mmol/L Anion Gap (5-15) MEQ/L BUN (9-20) mg/dL Creatinine (0.66-1.25) mg/dL Estimated GFR ML/MIN Glucose (74-106) mg/dL Calcium (8.4-10.2) mg/dL Total Bilirubin (0.2-1.3) mg/dL AST (17-59) U/L ALT (0-50) U/L Alkaline Phosphatase (38-126) U/L Serum Total Protein (6.3-8.2) g/dL Albumin (3.5-5.0) g/dL Lipase (23-300) U/L Urine Color (Yellow) Urine Appearance (Clear) Urine pH (4.6-8.0) Ur Specific Laughlin (1.005-1.030) Urine Protein (Negative) Urine Glucose (UA) (Negative) mg/dL Urine Ketones (Negative) Urine Blood (Negative) Urine Nitrite (Negative) Urine Bilirubin (Negative) Urine Urobilinogen (0.2) mg/dL Ur Leukocyte Esterase (Negative) U Hyaline Cast (Auto) (0-2) /LPF Urine Microscopic RBC (0-5) /HPF Urine Microscopic WBC (0-5) /HPF Ur Epithelial Cells (None Seen) /HPF Urine Bacteria (None Seen) /HPF Urine Culture Reflexed (NO) Influenza Type A Ag (NEGATIVE) Influenza Type B Ag (NEGATIVE) RSV (PCR) (NEGATIVE) SARS-CoV-2 (PCR) (NEGATIVE) - Progress Progress: improved Progress Note: 06/10/23 16:48 47-year-old is evaluated for abdominal pain with nausea vomiting and diarrhea for 1 week. Patient started any distress. He is given fluids and symptomatic treatment. Workup showed white count of 12, fairly unremarkable chemistries. No definite UTI. Patient has a CT abdomen pelvis without contrast done which is negative for colitis, obstruction perforation or any other acute finding but questionable liver hypodense lesions which is further evaluated with CT with contrast which showed it was hemangioma. He also has a hepatic cyst. Patient did not have any vomiting or diarrhea while in the ER. He is feeling better. He has a negative flu COVID and RSV. I believe patient has viral gastroenteritis, recommended supportive care and outpatient follow-up. Discussed signs symptoms of worsening needing return to ER which he seems understanding. Counseled pt/family regarding: lab results, diagnosis, need for follow-up, rad results Medical Desision Making - Diagnostic Testing Diagnostic test were ordered, analyzed, and reviewed by me: Yes Radiological Interpretation: Reviewed by me, Teleradiologist Report - Risk of complications The pt has a mod risk of morbidity or mortality based on: Need for prescription drug management - Departure Departure Disposition: Home Clinical Impression: Acute gastroenteritis, Hepatic hemangioma Condition: Stable Critical Care Time: No Referrals: LEIGH ANN HUGGINS [Primary Care Provider] - Follow up with PCP 2 days Instructions: Viral gastroenteritis in adults, Liver Hemangioma Additional Instructions: Drink plenty of fluids to keep yourself well-hydrated. Take Tylenol/Zofran as needed. Follow-up with primary care for reevaluation. Return to ER for intractable abdominal pain/vomiting/blood in the vomitus or stool or if develop fever chills etc. Prescriptions: Ondansetron ODT 4 MG [Zofran Odt 4 mg] 1 ea PO QIDPRN PRN #10 tablet PRN Reason: n/v
[2023-06-10 12:48] LABS: INFLUENZA A NEGATIVE (NEGATIVE); INFLUENZA B NEGATIVE (NEGATIVE); RESPIRATORY SYNCTIAL VIRUS NEGATIVE (NEGATIVE); SARS-CoV-2 Xpert Express NEGATIVE (NEGATIVE)
--- NOTE | 2023-06-10 13:34 | XRAY ---
CLINICAL HISTORY:LLQ pain COMPARISON:None. TECHNIQUE:An axial CT scan of the abdomen and pelvis was performed with IV contrast. Coronal and sagittal reconstructive images were also obtained. FINDINGS: The liver is normal in size. No diffuse parenchymal abnormality. 1.0 x 1.3 cm tiny rounded fluid attenuated area seen in left lobe of the liver likely hepatic cyst. 2.5 x 2.3 cm subtle hypodense area is seen in the right lobe of the liver in segment , would recommend triphasic contrast study CT / MRI for further evaluation. The portal vein, intrahepatic biliary radicals and the bile ducts are normal. The gallbladder is normal. No pericholecystic collection or radio dense calculi in the gall bladder. The spleen, pancreas, and adrenal glands are unremarkable. Splenencule seen measuring about 9.5 mm. A small 3 mm nonobstructing left renal calculus seen. The kidneys are unremarkable. They are normal in size and shape. No hydronephrosis. Subtle left perinephric fat stranding was seen. The visualized small and large bowel loops are unremarkable. No evidence of diverticulosis. Normal-appearing appendix There is no evidence of significant enlargement of the mesenteric or retroperitoneal lymph nodes. The urinary bladder is unremarkable. Average-sized prostate showing calcific foci within it. Few phleboliths seen. Mild scoliosis of the lumbar spine was seen with Knox's angle of 19.5. Mild degenerative changes are seen in the visualized lumbar spine. Degenerative disc disease mainly at the L4-L5 level. Subtle retrolisthesis of L5 over S1 Visualized sections of the lower chest show a small pulmonary nodule measuring about 3.2 mm in the superior segment of the right lower lobe [series 601; image #[id number]]. Another solid nodule in the lateral segment of the left lower lobe measuring about 5.8 mm [series 2; image #2/111]. Calcified subpleural nodule in the posterior segment of the right lower lobe measuring about 2.6 mm [series 602; image 79]. Atelectatic changes in both lower lobes and show subpleural ground-glass haziness. CT chest may be recommended for further evaluation IMPRESSION: 1. 1.0 x 1.3 cm small hepatic cyst. 2. 2.5 x 2.3 cm subtle hypodense area is seen in the right lobe of liver in segment , would recommend triphasic contrast study CT / MRI for further evaluation. 3. Nonobstructing small left renal calculus. 4. Mild scoliosis of the lumbar spine seen with Knox's angle of 19.5. 5. No evidence of diverticulosis. 6. Visualized sections of lower chest shows intrapulmonary nodule in both lower lobes, largest measuring about 5.8 mm in the left lower lobe. CT chest may be recommended for further evaluation Electronically Signed by: Florinda Farrar MD. (06/10/2023 13:29:51 EST)
[2023-06-10 16:06] VITALS: PULSE 66; O2SAT 97
--- NOTE | 2023-06-10 16:40 | XRAY ---
CLINICAL HISTORY:GASTROENTERITIS COMPARISON:Prior non-contrast CT was done earlier today. TECHNIQUE:Contiguous, multislice, post intravenous contrast CT scan of the abdomen and pelvis was performed in the axial plane with multiplanar reconstructions. FINDINGS: Mildly enlarged liver measuring about 18.7 cm in craniocaudal axis showing homogeneous attenuation. Cystic attenuation in the left lobe of liver segment 2 measuring about 14 X 14 mm. A hypodense lesion in the right lobe of liver segment 6 measuring about 22 X 28 mm shows filling-in in the delayed phase representing hepatic hemangioma. No intrahepatic biliary dilatation. Gallbladder shows no definite calculi inside. The pancreas and spleen appear unremarkable. No adrenal mass. Both kidneys appear normal in size and shows normal postcontrast enhancement and excretion. Small nonobstructing calculus in the lower pole of the left kidney. Minimal perinephric stranding around both kidneys (non-specific). No ascites. No para-aortic lymphadenopathy. Imaged bowel structures appear unremarkable. No significant bowel dilatation. No bowel wall thickening Normal-appearing appendix. A partially filled urinary bladder appears free from intraluminal stones, mass, or diverticular outpouching. Average-sized prostate showing calcific foci within it. Degenerative changes in the visualized spine. Degenerative disc disease is mainly at the L4-L5 level. Subtle retrolisthesis of L5 over S1. Visualized sections of the lower chest show a pulmonary nodule in the lateral segment of the left lower lobe measuring about 5.8 mm. Tiny calcified subpleural nodule in the posterior segment of the right lower lobe measuring about 2.6 mm. Atelectatic changes in both lower lobes show subpleural ground-glass haziness. CT chest may be recommended for further evaluation IMPRESSION: 1. Mild hepatomegaly. 2. Simple hepatic cyst in the left lobe of liver segment 2 measuring about 14 X 14 mm. 3. A hypodense lesion in the right lobe of liver segment 6 measuring about 22 X 28 mm showing filling-in in the delayed phase representing hepatic hemangioma. 4. No acute bowel pathology is identified 5. The rest of the findings as detailed above. Electronically Signed by: Florinda Farrar MD. (06/10/2023 16:35:43 EST)
[2023-06-10 17:10] VITALS: BP 165/99; RESP 21
== END 2023-06-10 17:10 | disposition home or self-care (01) ==
LOC: ED 10:55
DX: A08.4 Viral intestinal infection, unspecified (principal); D18.03 Hemangioma of intra-abdominal structures; R11.2 Nausea with vomiting, unspecified; R19.7 Diarrhea, unspecified; R10.32 Left lower quadrant pain; I10 Essential (primary) hypertension; Z79.899 Other long term (current) drug therapy; Z28.310 Unvaccinated for COVID-19; Z72.0 Tobacco use
CPT/HCPCS: 0241U; 36415; 74176; 74177; 80053; 81001; 83690; 85025; 87086; 96360; 96374; 96375; 99284; J1885; J2405